=== PATIENT | female | born 1980 | race Caucasian/White ===

== ENCOUNTER 2017-08-06 15:12 | Emergency (ER) | payer OTHER ==
[2017-08-06 16:21] VITALS: BP 147/83
[2017-08-06] MEDS ORDERED: Amoxicillin/Clavulanate TAB* 875 MG PO ONE (16:27)
--- NOTE | 2017-08-06 16:35 | UC ---
Ear Complaint HPI - HPI Summary HPI Summary: Patient is complaining of right ear pain and decreased hearing in the left ear. she also has pain in the right ear. She has been using debrox drops and attempting to flush the right ear thi past week, but now has pain and drainage from the ear. - History of Current Complaint Chief Complaint: UCEar Stated Complaint: LEFT EAR COMPLAINT Time Seen by Provider: 08/06/17 16:17 Hx Obtained From: Patient Hx Last Menstrual Period: 2 wks ago ?: No Onset/Duration: Sudden Onset, Lasting Days Severity Initially: Moderate Severity Currently: Severe Associated Signs/Symptoms: Positive: Discharge, Hearing Loss, Trauma to Ear, Swelling @ - Allergies/Home Medications Allergies/Adverse Reactions: Allergies Allergy/AdvReac Type Severity Reaction Status Date / Time No Known Allergies Allergy Verified 08/06/17 16:18 Home Medications: Home Medications [id number] [Vicks Nyquil Cold & Flu N 15-6.25-325 mg] 1 cap PO BEDTIME PRN 08/06/17 [History Confirmed 08/06/17] PMH/Surg Hx/FS Hx/Imm Hx Previously Healthy: Yes - Surgical History Surgical History: Yes Surgery Procedure, Year, and Place: ear tubes - Family History Known Family History: Negative: Cardiac Disease, Hypertension - Social History Alcohol Use: None Substance Use Type: None Smoking Status (MU): Never Smoked Tobacco When Did the Patient Quit Smoking/Using Tobacco: 5 MOS AGO Review of Systems Constitutional: Negative Skin: Negative Eyes: Negative ENT: Ear Ache Respiratory: Negative, Shortness Of Breath Gastrointestinal: Negative Genitourinary: Negative Motor: Negative Neurovascular: Negative Musculoskeletal: Negative Neurological: Negative Psychological: Negative Is Patient Immunocompromised?: No All Other Systems Reviewed And Are Negative: Yes Physical Exam Triage Information Reviewed: Yes Appearance: Well-Appearing, Well-Nourished, Pain Distress Vital Signs: Initial Vital Signs Temp 97.6 F 08/06/17 16:19 Pulse 94 08/06/17 16:19 Resp 16 08/06/17 16:19 BP 147/83 08/06/17 16:19 Pulse Ox 98 08/06/17 16:19 Vital Signs Reviewed: Yes Eye Exam: Normal ENT: Positive: Other: - right TM bulging and covered in drainage, otitis externa noted as well, TM intact Left ear cerumen impaction noted Dental Exam: Normal Neck exam: Normal Neck: Positive: Supple, Nontender, No Lymphadenopathy Respiratory Exam: Normal Respiratory: Positive: Chest non-tender, Lungs clear, Normal breath sounds Cardiovascular Exam: Normal Cardiovascular: Positive: RRR, No Murmur, Pulses Normal Abdominal Exam: Normal Abdomen Description: Positive: Nontender, No Organomegaly, Soft Bowel Sounds: Positive: Present Musculoskeletal Exam: Normal Musculoskeletal: Positive: Strength Intact, ROM Intact, No Edema Neurological Exam: Normal Neurological: Positive: Alert, Muscle Tone Normal Psychological Exam: Normal Skin Exam: Normal Ear Complaint Course/Dx - Course Course Of Treatment: hx obtained, exam performed ,meds reviewed, left ear irrigated, treated for ear infection - Differential Dx/Diagnosis Differential Diagnosis/HQI/PQRI: Cerumen Impaction, Otitis Externa, Otitis Media Provider Diagnoses: right otitis externa. left cerumen impaction Discharge - Discharge Plan Condition: Stable Disposition: HOME Prescriptions: Amoxicillin PO (*) [Amoxicillin 875 MG (*)] 875 mg PO BID #19 tab Ciproflox/Dexameth OTIC.SUSP* [Ciprodex OTIC.SUSP*] 4 drop OTIC BID #1 btl Patient Education Materials: Otitis Externa (ED), Otitis Media (ED) Additional Instructions: 1. take the medication as prescribed. 2. Warm compresses to the ear if painful 3. Ibuprofen for pain and fever 4. If not improving follow up with your primary doctor in 2 days.
== END 2017-08-06 17:00 | disposition home or self-care (01) ==
LOC: UCCORT 15:12
DX: H60.91 Unspecified otitis externa, right ear (principal); H61.22 Impacted cerumen, left ear
CPT/HCPCS: 99202; A9270-GY; G0463

== ENCOUNTER 2017-08-09 09:31 | Emergency (ER) | payer OTHER ==
[2017-08-09 10:17] VITALS: BP 114/76
--- NOTE | 2017-08-09 10:28 | UC ---
Ear Complaint HPI - HPI Summary HPI Summary: right ear pain continues after starting meds monday. there is continued pain. no drainage. No hearing loss. - History of Current Complaint Chief Complaint: UCEar Stated Complaint: RE-CK RIGHT EAR Time Seen by Provider: 08/09/17 10:18 Hx Obtained From: Patient Hx Last Menstrual Period: 07/17/17 Onset/Duration: Gradual Onset, Lasting Days Severity Initially: Moderate Severity Currently: Moderate Aggravating Factors: Other - touch Alleviating Factors: Nothing Associated Signs/Symptoms: Positive: Swelling @ - Allergies/Home Medications Allergies/Adverse Reactions: Allergies Allergy/AdvReac Type Severity Reaction Status Date / Time No Known Allergies Allergy Verified 08/09/17 10:08 PMH/Surg Hx/FS Hx/Imm Hx Previously Healthy: No - otitis externa. - Surgical History Surgical History: Yes Surgery Procedure, Year, and Place: ear tubes - Family History Known Family History: Positive: Other - no related ear history in the family. Negative: Cardiac Disease, Hypertension - Social History Alcohol Use: None Substance Use Type: None Smoking Status (MU): Never Smoked Tobacco When Did the Patient Quit Smoking/Using Tobacco: 5 MOS AGO Review of Systems ENT: Ear Ache All Other Systems Reviewed And Are Negative: Yes Physical Exam Triage Information Reviewed: Yes Appearance: Well-Appearing, No Pain Distress, Well-Nourished Vital Signs: Initial Vital Signs Temp 97.8 F 08/09/17 10:10 Pulse 96 08/09/17 10:10 Resp 20 08/09/17 10:10 BP 114/76 08/09/17 10:10 Pulse Ox 98 08/09/17 10:10 Vital Signs Reviewed: Yes Eye Exam: Normal Eyes: Positive: Conjunctiva Clear ENT: Positive: Pharynx normal, Other: - right canal swollen and tender. no pinna or tragal swelling.. Negative: Pharyngeal erythema, Nasal congestion, Tonsillar swelling, Tonsillar exudate, Trismus Neck exam: Normal Neck: Positive: Supple, Nontender, No Lymphadenopathy Respiratory: Positive: No respiratory distress, No accessory muscle use Cardiovascular: Positive: Brisk Capillary Refill Abdomen Description: Negative: Distended Musculoskeletal: Positive: No Edema Neurological: Positive: Alert, Muscle Tone Normal Skin: Negative: rashes Ear Complaint Course/Dx - Course Course Of Treatment: we will change meds to cipro po and cortisporin. she agrees to f/u with ent if not improving. - Differential Dx/Diagnosis Provider Diagnoses: right otitis externa. Discharge - Discharge Plan Condition: Good Disposition: HOME Prescriptions: Ciprofloxacin TAB* [Cipro 500 MG TAB*] 500 mg PO BID #20 tab Neomyc/Polym/HC 1% OTIC SUSP* [Cortisporin Otic Susp 1%*] 4 drop RIGHT EAR QID # 1 btl Patient Education Materials: Otitis Externa (ED) Referrals: Raymundo Smith MD [Medical Doctor] - If Needed
== END 2017-08-09 10:45 | disposition home or self-care (01) ==
LOC: UCCORT 09:31
DX: H60.91 Unspecified otitis externa, right ear (principal)
CPT/HCPCS: 99212; G0463

== ENCOUNTER 2020-01-22 10:34 | Day surgery (SDC) | payer OTHER ==
[~2020-01-22 10:34] MED LIST: Buffered Lidocaine 1% SYRIN* 1 ML/SYRINGE INTRADERM ONE; Famotidine IV* 10 MG/ML 2 ML (20 mg) IV ONE; Famotidine IV* 10 MG/ML 2 ML (20 mg) ONE; Lactated Ringers 1000 ML Bag* 1,000 ML IV SCH; ceFAZolin 2 GM PREMIX in ORs 2 GM/50 ML BAG ONE
[2020-01-22] MEDS ORDERED: Lidocaine 1% MPF ** 5 ML VIAL ONE (10:44)
[2020-01-22] MEDS ORDERED: ROPIVACAINE 5 MG/ML 30 ML BTL (0.5%) ONE (10:44)
[2020-01-22] MEDS ORDERED: Midazolam* 1 MG/ML 2 ML VIAL (2 MG) ONE (10:54)
[2020-01-22] MEDS ORDERED: EPINEPHRINE 1 MG/ML 1 ML VIAL ONE ×2 (11:25→12:54)
[2020-01-22] MEDS ORDERED: Bupivacaine 0.5% W/EPI SDV* 30 ML VIAL ONE (11:25)
[2020-01-22] MEDS ORDERED: Bupivacaine 0.25% SDV* 30 ML ONE (11:26)
[2020-01-22] MEDS ORDERED: Glycopyrrolate IV* 0.2 MG/ML 1 ML VIAL ONE (11:53)
[2020-01-22] MEDS ORDERED: fentaNYL* 50 MCG/ML 2 ML VIAL (100 MCG VIAL) ONE (11:53)
[2020-01-22] MEDS ORDERED: Propofol* 10 MG/ML 20 ML BTL ONE (11:53)
[2020-01-22] MEDS ORDERED: Rocuronium* 10 MG/ML VIAL ONE (12:14)
[2020-01-22] MEDS ORDERED: Phenylephrine 40 MCG/ML SYRINGE ONE (12:26)
[2020-01-22] MEDS ORDERED: Naloxone* 0.4 MG/ML 1 ML VIAL IV PRN (13:16)
[2020-01-22] MEDS ORDERED: Acetaminophen IV 1GM/100ML * 1,000 MG/100 ML VIAL IVPB ONE (13:16)
[2020-01-22] MEDS ORDERED: fentaNYL* 50 MCG/ML 2 ML VIAL (100 MCG VIAL) IV PRN (13:16)
[2020-01-22] MEDS ORDERED: Sugammadex * 200 MG/2 ML VIAL IV PUSH ONE (13:38)
[2020-01-22] MEDS ORDERED: Metoclopramide IV* 5 MG/ML 2 ML VIAL ONE (13:38)
[2020-01-22] MEDS ORDERED: Ondansetron INJ* 2 MG/ML VIAL ONE (13:38)
[2020-01-22] MEDS ORDERED: Acetaminophen IV 1GM/100ML * 100 ML ONE (14:03)
[2020-01-22 14:11] VITALS: BP 147/74
--- NOTE | 2020-01-23 12:01 | OP ---
OPERATIVE REPORT: DATE OF OPERATION: 01/22/20 DATE OF : 82 SURGEON: Ean Garces MD [employer]PER[employer] SCHO[employer] MANAGER: ISABEL Yang. A physician tmd teacher assistant was required for the length of the procedure for assistance with patient positioning, retraction, instrumentation, and closure. ANESTHESIOLOGIST: Alyce. ANESTHESIA: General anesthesia, regional interscalene block anesthesia. PRE-OP DIAGNOSES: 1. Right shoulder subacromial impingement and bursitis. 2. Right shoulder acromioclavicular joint osteoarthritis. 3. Right shoulder rotator cuff tendinitis. 4. Right shoulder partial thickness articular-sided rotator cuff tendon tear, supraspinatus. 5. Right shoulder biceps tendinosis. POST-OP DIAGNOSES: 1. Right shoulder subacromial impingement and bursitis. 2. Right shoulder acromioclavicular joint osteoarthritis. 3. Right shoulder rotator cuff tendinitis. 4. Right shoulder rotator cuff tendon tear, high grade, articular-sided supraspinatus tear, longitudinal. 5. Right shoulder proximal biceps tendinosis. OPERATIVE PROCEDURES: 1. Right shoulder arthroscopic rotator cuff tendon repair with 3 manners of fixation including a medial row single-anchor repair as well as 2 jefp-pn-wpie stitches as well as a Regeneten biologic patch. 2. Right shoulder arthroscopic subacromial decompression. 3. Right shoulder arthroscopic distal clavicle resection. 4. Right shoulder arthroscopic limited debridement including release of long head biceps tendon and debridement of superior labrum. ANTIBIOTICS: Ancef 2 g IV. IV FLUIDS: See Anesthesia note. [id number] TIME: 76 minutes. SPECIMEN: None. IMPLANTS: Arthrex 5.5 mm corkscrew suture anchor, double loaded with SutureTape. Arthrex FiberWire #2 two sutures, used for aabr-am-jlud stitches. [employer] Regeneten biologic patch, size medium. COMPLICATIONS: None. ESTIMATED BLOOD LOSS: Minimal. INDICATIONS FOR PROCEDURE: The patient is a 39-year-old woman, right hand dominant, [id number] mother formerly, but currently part-time worker at [employer], who had had pain for over 1 year in the right shoulder. Physical therapy for multiple months, cortisone injection. Full spectrum of nonoperative treatment. Continued to have symptoms, opted for surgery. We discussed biceps treatment, release versus tenodesis. The patient preferred biceps release. We had discussed pros and consistent of each. Discussed risks and potential complications of surgery overall. DESCRIPTION OF PROCEDURE: In preoperative holding, the patient signed a written consent. Operative extremity was marked in preoperative holding. The patient underwent a regional interscalene block anesthetic by Anesthesia in preoperative holding. The patient was taken back to the operating room and placed supine on the operating room table. Sedated and intubated. Placed in lateral decubitus, right shoulder up. Axillary roll. Beanbag hardened. All bony prominences padded. Right upper extremity in longitudinal traction of 15 pounds with appropriate amount of shoulder forward flexion and abduction. Right shoulder was prepped and draped. A formal surgical time-out was performed. Placed spinal needle into the glenohumeral joint from posterior. Infused 30 cc of normal saline. Established posterior glenohumeral joint portal. Started diagnostic arthroscopy. No significant articular cartilage injury. No subscapularis tendon tear. The patient had a significant amount of hyperemia and inflammation about the long head biceps tendon and its anchor and the superior labrum at the level of the biceps and just posterior to it. I established an anterior glenohumeral joint portal under direct visualization. I probed the biceps as well as the superior labrum. There was a significant inflammation tendinosis to the biceps tendon. As well, there was some amount of superior labrum tearing. For that reason, I decided to treat the biceps. I released the biceps with an arthroscopic scissors and then debrided some superior labrum with arthroscopic shaver. I evaluated the supraspinatus. Surprisingly, as much of the length of the supraspinatus, there was 1 to 2 mm of exposed footprint. There was no clear tear correlating with that along the full length of the tendon. It looked as though the tendon had essentially either torn a long time ago or just sort of degenerated. This made me not confident in the overall quality of the tendon tissue and made me decide later to add a Regeneten biologic patch to the repair. The patient had a clear hole in the rotator cuff tendon, proximal to its insertion. This was in the mid supraspinatus. I marked that hole with a spinal needle. When I placed the spinal needle through it, there was not much resistance time and that this was likely a high-grade partial thickness tear rather than something low grade. I also placed a second spinal needle closer to the insertion of the tendon in line with this longitudinal split. I moved to the subacromial space with anterior and posterior portals. There was some bursitis. I made lateral and posterolateral portals under direct visualization. I debrided subacromial bursitic tissue with an arthroscopic shaver. I identified the location of the rotator cuff tendon tear. This was essentially a full-thickness tear. There might have been several fibers remaining, perhaps it was only 98% of the thickness torn, but essentially very close to, if not a full- thickness tear. I probed the tear. It really seemed to be very longitudinal. None of the rotator cuff had clearly pulled off of its insertion. It looked liked this was very chronic. Surprising that it had not healed over time. I debrided the tear back to stable borders and did appear longer in length and extending into the footprints of the humeral head. Through a superolateral poke hole, I placed a Corkscrew suture anchor into the medial aspect of the footprint on the humeral head. I then placed 2 simple stitches anterior and more posterior to the longitudinal split. I placed these stitches using antegrade and retrograde suture passers. This brought the cuff together nicely and looked very anatomic. For the longitudinal split more medial, I used retrograde suture passers to place 2 simple stitches using FiberWire #2 suture. This tear appeared fully repaired. It was stable. Due to the overall impoverished health of this tendon, I thought I would supplement the healing with a Regeneten biologic patch. I placed a size medium patch and held it in place solely with PLLA dominique. Prior to the biologic patch, but after the suture anchor repair, I performed my subacromial decompression. I skeletonized the undersurface of the acromion with a Vapr cautery device and then smoothed out the anterior curve of the acromion, removing the undersurface at the anterior aspect of the acromion and flattening out nicely with an arthroscopic martin. After performing the biologic patch placement, I dressed the AC joint. I debrided the bursitic tissue with a cautery device and then removed 8 mm at the distal end of the clavicle with an arthroscopic martin. I removed the instruments and fluid. I closed the skin incisions with [id number] 12 stitches using nylon 3-0 suture. Xeroform, 4x4s, ABDs, foam tape. Sling and abduction pillow. Cooling unit. The patient was awakened, extubated and transferred to the PACU. DISPOSITION: Percocet as needed for pain control. The patient will follow up in 10 to 14 days in clinic. No physical therapy at this time. Sling at all times. [id number]/[facility] #: [id number] MTDD
== END 2020-01-22 15:19 | disposition home or self-care (01) ==
LOC: OR 10:34
PROVIDERS: ATTEND Orthopaedic Surgery
DX: S46.011D Strain of muscle(s) and tendon(s) of the rotator cuff of right shoulder, subsequent encounter (principal); M75.51 Bursitis of right shoulder; M25.811 Other specified joint disorders, right shoulder; M25.511 Pain in right shoulder; M19.011 Primary osteoarthritis, right shoulder; X50.1XXD Overexertion from prolonged static or awkward postures, subsequent encounter; R73.03 Prediabetes; Z79.84 Long term (current) use of oral hypoglycemic drugs
CPT/HCPCS: 81025; C1713; J0690; J2250; J2405; J2704; J2765; J2795; J3010; J3490